=== PATIENT | female | born 1995 | race Caucasian/White ===

== ENCOUNTER 2021-02-19 21:57 | Emergency (ER) | payer BC, OTHER ==
[~2021-02-19] VITALS: Ht 172.7 cm; Wt 102.1 kg
[2021-02-20 00:18] LABS: Basophils # (auto) 0.1 10 ^3/uL (0-0.2); Basophils % (auto) 0.6 % (0.0-2.0); Eosinophils # (auto) 0.1 10 ^3/uL (0-0.8); Eosinophils % (auto) 0.7 % (0.0-7.0); Hematocrit 39.6 % (36.0-46.0); Hemoglobin 13.6 g/dL (12.2-16.2); Lymphocytes # (auto) 1.5 10 ^3/uL (0.4-5.4); Lymphocytes % (auto) 12.2 % (10.0-50.0); Mean Corpuscular Hemoglobin 29.3 pg (28.0-32.0); Mean Corpuscular Hgb Conc. 34.3 g/dL (32.0-36.0); Mean Corpuscular Volume 85.4 fL (80.0-100.0); Monocytes # (auto) 0.6 10 ^3/uL (0-1.3); Monocytes % (auto) 4.9 % (0.0-12.0); Neutrophils % (auto) 81.6 % (37.0-80.0); Red Blood Cells 4.64 10^6/uL (4.0-5.20); Red Cell Distribution Width 12.4 % (11.8-14.3); White Blood Cell 12.2 10^3/uL (4.4-10.8)
[2021-02-20 00:40] LABS: Albumin 3.6 g/dL (3.4-5.0); BUN/Creatinine Ratio 17.6; Calcium 8.9 mg/dL (8.5-10.1); Potassium 4.4 mmol/L (3.5-5.1)
[2021-02-20 00:42] LABS: Bilirubin, Total 0.4 mg/dL (0.2-1.0); Total Protein 7.7 g/dL (6.4-8.2)
[2021-02-20] MEDS ORDERED: MECLIZINE HCL 25 MG TAB PO ONE (02:45)
[2021-02-20] MEDS ORDERED: ONDANSETRON ODT 4 MG TAB PO ONE (02:45)
[2021-02-20] MEDS ORDERED: HYDROcodone-ACET 5/325MG TAB PO ONE (03:00)
[2021-02-20 03:12] LABS: Amphetamine Screen, Urine NEGATIVE (NEGATIVE); Barbiturate Scree,Urine NEGATIVE (NEGATIVE); Benzodiazephine Screen, Urine NEGATIVE (NEGATIVE); Cannabinoid Screen, Urine NEGATIVE (NEGATIVE); Cocaine Screen, Urine NEGATIVE (NEGATIVE); Opiate Scree,Urine NEGATIVE (NEGATIVE); Phencyclidine Screen, Urine NEGATIVE (NEGATIVE)
[2021-02-20 03:17] LABS: Urine Bacteria FEW /hpf (None Seen); Urine Blood 2+ /uL (Negative); Urine Mucus FEW (None Seen); Urine Specific Gravity 1.011 (1.001-1.035); Urine WBC 1 /hpf (0 - 5)
[2021-02-20 05:08] VITALS: BP 96/56
== END 2021-02-20 07:07 | disposition home or self-care (01) ==
LOC: ER 21:57
DX: R10.84 Generalized abdominal pain (principal); R11.2 Nausea with vomiting, unspecified; J45.909 Unspecified asthma, uncomplicated; Z90.89 Acquired absence of other organs
CPT/HCPCS: 36415; 74176; 80053; 80307; 81001; 83690; 85025; 99284; Q0162